=== PATIENT | female | born 1930 | race Caucasian/White ===

== ENCOUNTER 2018-02-05 12:57 | Observation (INO) | payer MEDICARE, OTHER ==
[2018-02-05] MEDS ORDERED: Nitroglycerin TAB 0.4 MG* 0.4 MG TAB SL ONE (13:26)
--- NOTE | 2018-02-05 13:52 | RAD ---
INDICATION: Chest pain. COMPARISON: Comparison is made with a prior chest x-ray study from May 08, 2017. TECHNIQUE: A portable view of the chest was obtained. FINDINGS: The heart is within normal limits in size. There is a round air soft tissue density which projects over the cardiac shadow present posterior to the heart on the prior study consistent with a moderate size hiatal hernia which appears unchanged. The lungs are hyperinflated and clear. No pleural effusion is seen. IMPRESSION: 1. NO EVIDENCE FOR ACUTE FINDING. 2. MODERATE SIZE HIATAL HERNIA, UNCHANGED.
[2018-02-05 13:58] LABS: ABS Basophils 0.1 10^3/ul (0-0.2); ABS Eosinophils 0.3 10^3/ul (0-0.6); ABS Lymphocytes 1.8 10^3/ul (1.0-4.8); ABS Monocytes 0.6 10^3/ul (0-0.8); ABS Neutrophils 4.5 10^3/ul (1.5-7.7); ABS Nucleated RBC 0 10^3/ul; Eosinophil % 4.4 % (0-6); Hematocrit 37 % (35-47); Lymphocyte % 24.4 % (25-47); Mean Corpuscular HGB Conc 33 g/dl (31-36); Mean Corpuscular Hemoglobin 27 pg (27-31); Mean Corpuscular Volume 82 fL (80-97); Mean Platelet Volume 7.9 um3 (7.4-10.4); Nucleated Red Blood Cells % 0; Platelet Count 220 10^3/ul (150-450); Red Blood Count 4.46 10^6/ul (4.00-5.40); Red Cell Distribution Width 14 % (10.5-15); White Blood Count 7.3 10^3/ul (3.5-10.8)
[2018-02-05 14:14] LABS: INR 0.88 (0.77-1.02)
[2018-02-05 14:18] LABS: EGFR Non-African American 42.8 (>60)
[2018-02-05] MEDS ORDERED: Iodixanol* (CONTRAST) 320 MG/ML 100 ML SDV IV ONE (14:39)
--- NOTE | 2018-02-05 15:31 | RAD ---
Indication: Multiple falls. Concern for potential TIA. Comparison: January 16, 2010 MRI and September 20, 2009 CT. Technique: Noncontrast CT vertex of skull through foramen magnum. Report: Old lacunar infarcts at the RIGHT caudate head and genu of the LEFT internal capsule. No lenz matter white matter obscuration seen in association with mass effect. Negative for intra or extra-axial hemorrhage. Moderate prominence of the cerebral sulci and proportional enlargement of the ventricles reflecting atrophy. Decreased density in the periventricular and subcortical white matter while non-specific is most likely due to chronic microangiopathy. Patent basal cisterns. Unremarkable orbital contents. Negative for scalp hematoma or fracture of the calvarium or skull base. IMPRESSION: 1. No CT evidence for traumatic brain injury or acute intracranial process evident. 2. Involutional change, stigmata of small vessel ischemic disease, and small chronic lacunar infarcts at the RIGHT caudate head and genu of the LEFT internal capsule.
--- NOTE | 2018-02-05 15:44 | RAD ---
INDICATION: Trauma. COMPARISON: Comparison is made with a prior x-ray study of the cervical spine from February 01, 2009. TECHNIQUE: Contiguous axial sections were obtained from the skull base through the T2 vertebra. Images were reconstructed in the sagittal and coronal planes. FINDINGS: There is mild anterolisthesis of C3 relative to C4 of approximately 2 mm which is unchanged. The vertebra are otherwise in normal alignment. No fracture is seen. At the C3-C4 level there is mild posterior uncinate process spurring and moderate hypertrophic changes within the facet joints. No significant spinal canal narrowing is present. There is moderate bilateral neural foraminal narrowing. At the C4-C5 level there is moderate posterior uncinate process spurring and mild hypertrophic changes within the facet joints. There is mild spinal canal narrowing. There is moderate neural foraminal narrowing on both sides. At the C5-C6 level there is moderate posterior uncinate process spurring causing mild spinal canal narrowing and moderate bilateral neuroforaminal narrowing. At the C6-C7 level there is mild posterior uncinate process spurring. No significant spinal canal narrowing is present. There is mild bilateral neural foraminal narrowing. IMPRESSION: 1. NO EVIDENCE FOR FRACTURE. 2. MODERATE CERVICAL SPONDYLOSIS.
--- NOTE | 2018-02-05 15:51 | RAD ---
INDICATION: Chest pain. Short of breath. Evaluate for pulmonary embolus. COMPARISON: Chest x-ray February 05, 2018; mammogram February 10, 2008 TECHNIQUE: Axial source images were obtained from the thoracic inlet to the hemidiaphragms following administration of [address] angiographic technique was utilized. Coronal and sagittal reconstructed images were acquired. CHEST FINDINGS: Neck/thyroid: The visualized neck to include the thyroid appear normal. Chest wall: There are no acute abnormalities of the bony thorax or chest wall. There are multiple right breast nodules. Nodules of similar size were evident on the 2007 mammogram. There is no supraclavicular, infraclavicular, or axillary lymphadenopathy. Lungs : There are no worrisome pulmonary parenchymal masses or infiltrates. There is mild parenchymal nodularity in the right upper lobe. Because there are no prior examinations for comparison, suggest noncontrast chest CT imaging follow-up in 6 months The pulmonary interstitium appears normal. There are no endobronchial lesions. Cardiomediastinal structures: There is no CT evidence of acute pulmonary embolic disease. The heart is normal in size. There is no pericardial effusion. There is no evidence of aortic aneurysm or dissection. There are underlying atherosclerotic changes. There is no mediastinal or hilar adenopathy. The esophagus appears normal. Pleura : There is mild pleural reactive change in right upper chest. There are no effusions. Other: There is a large hiatal hernia.. IMPRESSION: NO CT OF ACUTE PULMONARY EMBOLIC DISEASE. LOW INDEX OF SUSPICION RIGHT CHEST NODULARITY. STABLE RIGHT BREAST LESIONS. LARGE HILAR HERNIA
[2018-02-05] MEDS ORDERED: Al Hydrox/Mg Hydrox/Simet LIQ* 30 ML UDC PO ONE (16:27)
[2018-02-05] MEDS ORDERED: Acetaminophen TAB* 325 MG PO ONE (16:28)
[2018-02-05] MEDS: NS 0.9% 1000 ML* 1,000 ML IV SCH (16:59)
--- NOTE | 2018-02-05 17:33 | RAD ---
INDICATION: Right hip injury. COMPARISON: There are no prior studies available for comparison. TECHNIQUE: An AP view of the pelvis and frontal and lateral views of the right hip were obtained. FINDINGS: The bones are in normal alignment. No fracture is seen. There is mild bilateral osteoarthritic change in the hips. Contrast is seen within the urinary bladder from a prior CT study. IMPRESSION: NO EVIDENCE FOR FRACTURE, IF THE PATIENT'S SYMPTOMS PERSIST RECOMMEND FOLLOW-UP IMAGING.
[2018-02-05] MEDS ORDERED: Albuterol HFA INHALER* 8 gm MDI INH PRN (18:18)
[2018-02-05] MEDS ORDERED: hydrALAZINE IV* 20 MG/ML VIAL IV SLOW PU PRN (18:22)
--- NOTE | 2018-02-05 18:49 | ED ---
Cynthia Muniz Tenzin, scribed for Harshil Shepherd MD on 02/05/18 at 1323 . HPI Chest Pain - HPI Summary HPI Summary: Pt is an 87 years old female presenting to the ED complaining of chest pain since this morning at 9:00. Prior to onset pt reports that she was sitting and reading a book. Pt is with PMHx of asthma and COPD complaining of SOB. Pt denies pain in her calf, nausea, fever or chills. Pt rates her current chest pain at 5/10 in severity at the ED and describes it as pressured and tight feeling. She notes that the pain is aggravated by deep breaths and alleviated by walking around. Her daughter also reports that the pt fell yesterday and hit her face. Pt currently notes that her face is a little sore from that fall and notes swellings on her left upper lip. She reports that she doesn't remember how she fell. Her daughter reports that she also fell a week and half ago and hurt her hip. She took an 324 mg aspirin today. She is allergic to penicillin. She has a puffer at home for her asthma. She also had a TIA two and half years ago and notes that her left face has been little droopy since then. - History of Current Complaint Chief Complaint: EDChestPainROMI Time Seen by Provider: 02/05/18 13:11 Hx Obtained From: Patient Timing: Constant Current Severity: Mild Pain Intensity: 1 Pain Scale Used: 0-10 Numeric Chest Pain Location: Discrete at: - upper mid chest. Chest Pain Radiates: No Character: Pressure/Squeezing, Tightness Aggravating Factor(s): Deep Breaths Alleviating Factor(s): Other: - walking Associated Signs and Symptoms: Positive: Chest Pain, Shortness of Breath, Other : - swollen upper left lip from a fall yesterday.. Negative: Fever, Chills, Nausea - Allergy/Home Medications Allergies/Adverse Reactions: Allergies Allergy/AdvReac Type Severity Reaction Status Date / Time procaine [From Novocain] Allergy Hives Verified 02/05/18 13:39 Home Medications: Home Medications Albuterol inh POWDER (NF) [Proair Respiclick] 2 puff INH Q4HR PRN 02/05/18 [ History Confirmed 02/05/18] Aspirin EC TAB* [Ecotrin EC TAB*] 325 mg PO QAM 02/05/18 [History Confirmed ] Bimatoprost 0.01% OPHTH (NF) [Lumigan 0.01% OPHTH (NF)] 1 drop BOTH EYES QPM [History Confirmed 02/05/18] Cetirizine* [ZyrTEC 10 MG TAB*] 10 mg PO QPM 02/05/18 [History Confirmed ] Cholecalciferol (Vitamin D3) [Vitamin D3] 1,000 unit PO DAILY 02/05/18 [History Confirmed 02/05/18] Cyanocobalamin TAB* [Vitamin B12 TAB*] 100 mcg PO DAILY 02/05/18 [History Confirmed 02/05/18] Ferrous Gluconate TAB* [Fergon TAB*] 324 mg PO QAM 02/05/18 [History Confirmed 02/05/18] Loperamide CAP* [Imodium CAP*] 2 mg PO QAM 02/05/18 [History Confirmed 02/05/18] Metoprolol Tartrate TAB* [Lopressor TAB*] 12.5 mg PO QAM 02/05/18 [History Confirmed 02/05/18] Metoprolol Tartrate TAB* [Lopressor TAB*] 25 mg PO QPM 02/05/18 [History Confirmed 02/05/18] Mirtazapine TAB* [Remeron TAB*] 15 mg PO BEDTIME 02/05/18 [History Confirmed ] Naproxen Sodium [Naproxen 220 mg] 220 mg PO QPM 02/05/18 [History Confirmed ] Pantoprazole TAB (NF) [Protonix TAB (NF)] 20 mg PO QAM 02/05/18 [History Confirmed 02/05/18] Pravastatin (NF) [Pravachol (NF)] 20 mg PO BEDTIME 02/05/18 [History Confirmed 02/05/18] Sertraline* [Zoloft*] 50 mg PO QAM 02/05/18 [History Confirmed 02/05/18] Umeclidin/Vilant 62.5 MDI(NF) [ANORO 62.5/25 Ellipta DEVICE (NF)] 1 puff INH QAM 02/05/18 [History Confirmed 02/05/18] chlordiazePOXIDE CAP* [Librium CAP*] 5 mg PO BID 02/05/18 [History Confirmed ] PMH/Surg Hx/FS Hx/Imm Hx Cardiovascular History: Reports: Hx Hypertension Denies: Hx Pacemaker/ICD Respiratory History: Reports: Hx Asthma, Hx Chronic Obstructive Pulmonary Disease (COPD) GI History: Reports: Hx Gastroesophageal Reflux Disease Neurological History: Reports: Hx Transient Ischemic Attacks (TIA) Infectious Disease History: No Infectious Disease History: Denies: Traveled Outside the [place] in Last 30 Days - Family History Known Family History: Positive: Cardiac Disease Review of Systems Negative: Fever, Chills Positive: Chest Pain Positive: Shortness Of Breath Negative: Nausea Positive: Edema - left upper lip. All Other Systems Reviewed And Are Negative: Yes Physical Exam - Summary Physical Exam Summary: General: well-appearing, no pain distress Skin: warm, color reflects adequate perfusion, dry Head: normal Eyes: EOMI, ANTONIO ENT: normal Neck: supple, nontender Respiratory: CTA, breath sounds present Cardiovascular: RRR Abdomen: soft, nontender Bowel: present Musculoskeletal: normal, strength/ROM intact Neurological: sensory/motor intact, A&O x3. She is swollen in the left upper lip which makes her smile asymmetric, rest neuro exam is normal. GCS: 15 Psychological: affect/mood appropriate Triage Information Reviewed: Yes Vital Signs On Initial Exam: Initial Vitals Temp Pulse Resp BP Pulse Ox 98.0 F 76 14 208/98 98 02/05/18 13:02 02/05/18 13:02 02/05/18 13:02 02/05/18 13:02 02/05/18 13:02 Vital Signs Reviewed: Yes Diagnostics - Vital Signs Vital Signs Temp Pulse Resp BP Pulse Ox 02/05/18 13:02 98.0 F 76 14 208/98 98 - Laboratory Lab Results: Lab Results 02/05/18 02/05/18 02/05/18 Range/Units 13:50 13:50 13:50 WBC 7.3 (3.5-10.8) 10^3/ul RBC 4.46 (4.00-5.40) 10^6/ul Hgb 12.0 (12.0-16.0) g/dl Hct 37 (35-47) % MCV 82 (80-97) fL MCH 27 (27-31) pg MCHC 33 (31-36) g/dl RDW 14 (10.5-15) % Plt Count 220 (150-450) 10^3/ul MPV 7.9 (7.4-10.4) um3 Neut % (Auto) 62.0 (38-83) % Lymph % (Auto) 24.4 L (25-47) % Harper % (Auto) 8.4 H (0-7) % Eos % (Auto) 4.4 (0-6) % Baso % (Auto) 0.8 (0-2) % Absolute Neuts (auto) 4.5 (1.5-7.7) 10^3/ul Absolute Lymphs (auto) 1.8 (1.0-4.8) 10^3/ul Absolute Monos (auto) 0.6 (0-0.8) 10^3/ul Absolute Eos (auto) 0.3 (0-0.6) 10^3/ul Absolute Basos (auto) 0.1 (0-0.2) 10^3/ul Absolute Nucleated RBC 0 10^3/ul Nucleated RBC % 0 INR (Anticoag Therapy) 0.88 (0.77-1.02) APTT 30.9 (26.0-36.3) seconds D-Dimer, Quantitative 696 H (Less Than 230) ng/mL Sodium 138 L (139-145) mmol/L Potassium 4.5 (3.5-5.0) mmol/L Chloride 105 (101-111) mmol/L Carbon Dioxide 28 (22-32) mmol/L Anion Gap 5 (2-11) mmol/L BUN 24 (6-24) mg/dL Creatinine 1.19 H (0.51-0.95) mg/dL Est GFR ( Amer) 55.1 (>60) Est GFR (Non-Af Amer) 42.8 (>60) BUN/Creatinine Ratio 20.2 H (8-20) Glucose 91 (70-100) mg/dL Lactic Acid (0.5-2.0) mmol/L Calcium 9.2 (8.6-10.3) mg/dL Magnesium 2.1 (1.9-2.7) mg/dL Total Bilirubin 0.30 (0.2-1.0) mg/dL AST 14 (13-39) U/L ALT 7 (7-52) U/L Alkaline Phosphatase 87 (34-104) U/L Total Creatine Kinase 58 (10-223) U/L CK-MB (CK-2) 1.6 (0.6-6.3) ng/mL Troponin I 0.00 (<0.04) ng/mL C-Reactive Protein 2.13 (< 5.00) mg/L B-Natriuretic Peptide ( - 100) pg/mL Total Protein 6.4 (6.4-8.9) g/dL Albumin 3.6 (3.2-5.2) g/dL Globulin 2.8 (2-4) g/dL Albumin/Globulin Ratio 1.3 (1-3) Lipase 25 (11.0-82.0) U/L TSH 3.53 (0.34-5.60) mcIU/mL 02/05/18 02/05/18 02/05/18 Range/Units 13:50 13:50 16:12 WBC (3.5-10.8) 10^3/ul RBC (4.00-5.40) 10^6/ul Hgb (12.0-16.0) g/dl Hct (35-47) % MCV (80-97) fL MCH (27-31) pg MCHC (31-36) g/dl RDW (10.5-15) % Plt Count (150-450) 10^3/ul MPV (7.4-10.4) um3 Neut % (Auto) (38-83) % Lymph % (Auto) (25-47) % Harper % (Auto) (0-7) % Eos % (Auto) (0-6) % Baso % (Auto) (0-2) % Absolute Neuts (auto) (1.5-7.7) 10^3/ul Absolute Lymphs (auto) (1.0-4.8) 10^3/ul Absolute Monos (auto) (0-0.8) 10^3/ul Absolute Eos (auto) (0-0.6) 10^3/ul Absolute Basos (auto) (0-0.2) 10^3/ul Absolute Nucleated RBC 10^3/ul Nucleated RBC % INR (Anticoag Therapy) (0.77-1.02) APTT (26.0-36.3) seconds D-Dimer, Quantitative (Less Than 230) ng/mL Sodium (139-145) mmol/L Potassium (3.5-5.0) mmol/L Chloride (101-111) mmol/L Carbon Dioxide (22-32) mmol/L Anion Gap (2-11) mmol/L BUN (6-24) mg/dL Creatinine (0.51-0.95) mg/dL Est GFR ( Amer) (>60) Est GFR (Non-Af Amer) (>60) BUN/Creatinine Ratio (8-20) Glucose (70-100) mg/dL Lactic Acid 0.9 (0.5-2.0) mmol/L Calcium (8.6-10.3) mg/dL Magnesium (1.9-2.7) mg/dL Total Bilirubin (0.2-1.0) mg/dL AST (13-39) U/L ALT (7-52) U/L Alkaline Phosphatase (34-104) U/L Total Creatine Kinase (10-223) U/L CK-MB (CK-2) (0.6-6.3) ng/mL Troponin I 0.00 (<0.04) ng/mL C-Reactive Protein (< 5.00) mg/L B-Natriuretic Peptide 54 ( - 100) pg/mL Total Protein (6.4-8.9) g/dL Albumin (3.2-5.2) g/dL Globulin (2-4) g/dL Albumin/Globulin Ratio (1-3) Lipase (11.0-82.0) U/L TSH (0.34-5.60) mcIU/mL Result Diagrams: 02/05/18 13:50 02/05/18 13:50 Lab Statement: Any lab studies that have been ordered have been reviewed, and results considered in the medical decision making process. - Radiology CHEST X RAY Radiology Interpretation Completed By: Radiologist - IMPRESSION: 1. NO EVIDENCE FOR ACUTE FINDING. 2. MODERATE SIZE HIATAL HERNIA, UNCHANGED. reviewed the report. HIP/PELVIS X RAY Radiology Interpretation Completed By: Radiologist - IMPRESSION: NO EVIDENCE FOR FRACTURE, IF THE PATIENT'S SYMPTOMS PERSIST RECOMMEND FOLLOW-UP IMAGING. reviewed the report. - CT BRAIN CT CT Interpretation Completed By: Radiologist - IMPRESSION: 1. No CT evidence for traumatic brain injury or acute intracranial process evident. 2. Involutional change, stigmata of small vessel ischemic disease, and small chronic lacunar infarcts at the RIGHT caudate head and genu of the LEFT internal capsule. reviewed the report. CT CERVICAL SPINE CT Interpretation Completed By: Radiologist - IMPRESSION: 1. NO EVIDENCE FOR FRACTURE. 2. MODERATE CERVICAL SPONDYLOSIS. reviewed the report. CTA CHEST CT Interpretation Completed By: Radiologist - IMPRESSION: NO CT OF ACUTE PULMONARY EMBOLIC DISEASE. LOW INDEX OF SUSPICION RIGHT CHEST NODULARITY. STABLE RIGHT BREAST LESIONS. LARGE HILAR HERNIA. reviewed the report. - EKG 12:55 Cardiac Rate: NL - 73 BPM Ectopy: None EKG Interpretation: Q waves in anterior leads, ST elevation in anterior leads with concave up. Chest Pain Course/Dx - Course Course Of Treatment: ADMIT HOSPITALIST - Diagnoses Provider Diagnoses: Chest pain, Hypertension Discharge - Sign-Out/Discharge Documenting (check all that apply): Discharge/Admit/Transfer - admit - Discharge Plan Condition: Fair Disposition: ADMITTED TO [facility] Referrals: Geovanny Soto MD [Primary Care Provider] - - Billing Disposition and Condition Condition: FAIR Disposition: Admitted to [facility] The documentation as recorded by the Cynthia biswas Tenzin accurately reflects the service I personally performed and the decisions made by , Harshil Shepherd MD.
[2018-02-05] MEDS ORDERED: amLODIPine TAB* 5 MG PO SCH (19:00)
[2018-02-05] MEDS: Heparin VIAL(*) 5000 UNITS/ML VIAL (FIVE THOUSAND) SUBCUT SCH (20:17)
[2018-02-05] MEDS: chlordiazePOXIDE CAP* 5 MG PO SCH (20:35)
[2018-02-05 20:37] LABS: Urine Appearance Clear; Urine Blood Negative (Negative); Urine Color Straw; Urine Ketones Negative (Negative); Urine Protein Negative (Negative); Urine Specific Gravity 1.041 (1.010-1.030); Urine Urobilinogen Negative (Negative)
[2018-02-05] MEDS ORDERED: Mirtazapine TAB* 15 MG PO SCH (21:00)
[2018-02-05] MEDS ORDERED: Metoprolol Tartrate TAB* 25 MG PO SCH (22:00)
--- NOTE | 2018-02-05 23:41 | HP ---
CC: Dr. Soto.* HOSPITAL MEDICINE HISTORY AND PHYSICAL: DATE OF ADMISSION: 02/05/18 PRIMARY CARE PHYSICIAN: Dr. Soto. ATTENDING PHYSICIAN: Dr. Zaida Cornelius * (dictation provided by Lucero Sampson NP ). CHIEF COMPLAINT: Chest pain. HISTORY OF PRESENT ILLNESS: Ms. Sanchez is an 87-year-old female with a past medical history of hypertension, COPD/asthma and multiple TIAs with CVA who presented to the hospital today with concern for chest discomfort. Ms. Sanchez states that she has been in her normal state of health initially, however on further questioning she and her daughter note that there happened 2 recent falls. Per their report, the patient fell last week. She does not have a clear recollection of what happened, but she thinks maybe she tripped over something, although there was not anything there to trip over. She does not believe that she passed out, but she is not quite clear on that. Yesterday, she had another fall. For this fall, she has very limited memory. She thinks maybe she was reaching out to turn a light off, but she cannot be sure. When I asked her how she knew she fell, she has a difficult time answering the question, but states that her lip hurts and she thinks she bumped her lip during that fall. Today, she was seated at rest when she developed chest discomfort. She describes it as a chest heaviness that is worse with deep inspiration. She has reported that the discomfort actually got better when she got up and moved around as she was distracted by this. She also took her blood pressure at home and it was dramatically elevated over 200 systolically and therefore, she was counseled to come to the emergency room for evaluation In the emergency room, Ms. Sanchez states that her pain has been unremitting, but then when I asked her again later in the conversation, she states it is now resolved. She has labs, which are unremarkable. She has a chest x-ray, which was unremarkable. She went on for a brain CT, which shows just the stigmata of her previous TIA, CVAs. She has a chest thorax CTA, which was unremarkable and had pelvis x-ray, which is unremarkable and a cervical spine CT, which is unremarkable. Her vitals, however, show that she has a persistent significant hypertension with hypertensive urgency with systolic blood pressure running as high as 211, currently 189/92. PAST MEDICAL HISTORY: 1. Hyperlipidemia. 2. COPD/asthma. 3. Depression. 4. Hypertension. 5. GERD. 6. Irritable bowel syndrome. 7. Glaucoma. 8. Hiatal hernia. 9. History of TIA and CVAs. PAST SURGICAL HISTORY: 1. Cholecystectomy. 2. Appendectomy. 3. History of eye surgeries. MEDICATIONS: 1. Lumigan 0.01% 1 drop both eyes q.p.m. 2. Cetirizine 10 mg p.o. q.p.m. 3. Cholecalciferol 1000 units p.o. daily. 4. Naproxen 220 mg p.o. q.p.m. 5. Pravastatin 20 mg p.o. at bedtime. 6. Anoro Ellipta 62.5/25 one puff inhaled q.a.m. 7. Albuterol inhaler 2 puffs inhaled q.4 hours p.r.n. 8. Aspirin 325 mg p.o. q.a.m. 9. Chlordiazepoxide 5 mg p.o. b.i.d. 10. Cyanocobalamin 100 mcg p.o. daily. 11. Ferrous gluconate 324 mg p.o. q.a.m. 12. Loperamide 2 mg p.o. q.a.m. 13. Metoprolol tartrate 12.5 mg in the a.m. and 25 mg in the p.m. 14. Mirtazapine 15 mg p.o. at bedtime. 15. Pantoprazole 20 mg p.o. q.a.m. 16. Sertraline 50 mg p.o. q.a.m. ALLERGIES: PROGAINE. FAMILY HISTORY: The patient reports that her mother related to heart attack at age 55, but she does know what took her father's life. SOCIAL HISTORY: The patient is a former smoker. She quit 30 years ago. There is no reported drug use. She drinks alcohol very occasionally. She states that her oldest daughter, Kelli, will be the healthcare proxy. REVIEW OF SYSTEMS: A 14-point review of systems was completed with Ms. Sanchez , and all those not mentioned above were negative. PHYSICAL EXAMINATION GENERAL: Ms. Sanchez is sitting in the bed with her daughter at bedside. She is in no acute distress. VITAL SIGNS: Blood pressure on arrival was 208/98, now 189/92; heart rate 73; respiratory rate 17; O2 saturation 94% on room air. LUNGS: Clear to auscultation bilaterally. No accessory muscle use. Good aeration. HEART: S1, S2. No murmur, rub or gallop, and regular. ABDOMEN: Soft, nontender with bowel sounds positive x4. EXTREMITIES: No cyanosis. No edema. NEURO: She is alert. She is oriented x3. She moves all extremities equally. There is no facial asymmetry or focal weakness. Extraocular movements are intact. SKIN: Intact. DIAGNOSTIC STUDIES/LAB DATA: EKG shows sinus rhythm with no evidence of ischemia. Chest x-ray is read as follows: "No evidence for acute finding." Moderate- sized hiatal hernia unchanged. Brain CT is read as follows: No CT evidence for traumatic brain injury. Acute intracranial process evident, involutional changes, stigmata of small vessel ischemic disease and small chronic lacunar infarcts at the right caudate head and genu of the left internal capsule. Chest thorax CTA: "No CT evidence of acute pulmonary embolic disease." Low index of suspicion right chest nodularity, stable right breast lesions, large hiatal hernia. Hip pelvis x- ray: "No evidence for fracture." If the patient' s symptoms persist, recommend followup imaging. Cervical spine CT is read as follows: No evidence for fracture. Moderate cervical spondylosis. ASSESSMENT: Ms. Sanchez is an 87-year-old female with past medical history of hypertension, depression, chronic obstructive pulmonary disease, asthma and multiple transient ischemic attacks and cerebrovascular accidents in the past who presents to the hospital today with concern for 2 recent falls at home, which seem unusual for her and have unclear causation as well as now chest discomfort and hypertensive urgency. Our plans are for observation in hospital for the followin. Hypertensive urgency. The patient's blood pressure is now down to 189/92. She will have hydralazine available p.r.n. and I am starting amlodipine 5 mg p.o. daily now. 2. Chest discomfort. The patient's first 2 troponins are negative and her EKG shows no evidence of ischemia. We will replete troponin and go ahead and do a stress test while she is here as she is a high risk and has some unclear symptoms including chest discomfort and possible episodes of syncope. 3. Question syncope. The patient has great difficulty in explaining to me anything about these falls and is very likely that she could have been fainted. I would like to continue her on telemetry monitoring and obtain a transthoracic echocardiogram. 4. Chronic obstructive pulmonary disease/asthma. No evidence for acute exacerbation. Continue home medications. 5. Depression. Continue home medications. 6. Irritable bowel syndrome. Continue home medications. 7. DVT prophylaxis with heparin subcu. 8. Code status is DNR. TIME SPENT: Approximately 60 minutes was spent on the admission of this patient , more than half time spent with the patient at the bedside reviewing the events leading up to this hospitalization and during this hospitalization thus far, performing the physical examination and reviewing the plan of care. LUCERO SAMPSON NP [id number]/CPS #: [id number] JARROD
[2018-02-06] MEDS: NS 0.9% 1000 ML* 1,000 ML IV SCH (03:42)
[2018-02-06] MEDS: Heparin VIAL(*) 5000 UNITS/ML VIAL (FIVE THOUSAND) SUBCUT SCH ×2 (05:30→14:38)
[2018-02-06] MEDS ORDERED: amLODIPine TAB* 5 MG PO SCH (08:25)
[2018-02-06] MEDS ORDERED: Loperamide CAP* 2 MG PO SCH (09:00)
[2018-02-06] MEDS: chlordiazePOXIDE CAP* 5 MG PO SCH (09:00)
[2018-02-06] MEDS ORDERED: Metoprolol Tartrate TAB* 25 MG PO SCH (09:00)
[2018-02-06] MEDS ORDERED: Ferrous Gluconate TAB* 324 MG TAB PO SCH (09:00)
[2018-02-06] MEDS ORDERED: Aspirin EC TAB* 325 MG PO SCH (09:00)
[2018-02-06] MEDS ORDERED: CYANOCOBALAMIN 100 MCG PO SCH (09:00)
[2018-02-06] MEDS ORDERED: Pantoprazole TAB (NF) 20 MG TAB PO SCH (09:00)
[2018-02-06] MEDS ORDERED: Sertraline* 50 MG TAB PO SCH (09:00)
--- NOTE | 2018-02-06 09:00 | ECHO ---
Patient: [facility] Rec#: [id number] : 1930 Date: 02/06/2018 Age: 87y Height: 147.32 cm / 58.0 in Weight: 52.16 kg / 115.0 lbs Sex: F BSA: 1.44 Room#: [facility] Admit Date#: 02/05/2018 Type: Inpatient Referring: Lucero Sampson NP Reading: Dhiraj iMller MD Conveyor Monitor: Sunitha Mckeon,LISECS,RDMS CC: Geovanny Soto MD Transthoracic Echocardiogram Indication: CP, Syncope BP: 177/83 HR: 80 Rhythm: NSR Findings History: HTN, HLD, COPD, TIA, CVA Technical Comments: The study quality is fair. Left Ventricle: The left ventricular chamber size is decreased. Mild concentric left ventricular hypertrophy is observed. There is a prominent septal knuckle. The estimated ejection fraction is greater than 65%. There is an E to A reversal in the mitral valve flow pattern suggestive of diastolic dysfunction. Left Atrium: The left atrial chamber size is normal. Right Ventricle: The right ventricular chamber size and systolic function are within normal limits. The right ventricle wall thickness is mildly increased. Right Atrium: The right atrial cavity size is normal. Aortic Valve: The aortic valve is trileaflet. Systolic excursion of the aortic valve is normal. There is trace to mild aortic regurgitation. There is no evidence of aortic stenosis. Mitral Valve: Mild mitral annular calcification present. The mitral valve leaflets do not appear thickened. There is a trace of mitral regurgitation. There is no evidence of mitral stenosis. Tricuspid Valve: The tricuspid valve leaflets are normal. There is trace tricuspid regurgitation. No pulmonary hypertension is noted. Pulmonic Valve: There is no evidence of pulmonic valve thickening. There is a trace pulmonic regurgitation. Pericardium: There is no significant pericardial effusion. Aorta: The aortic root appears normal. The aortic arch is not well visualized. Pulmonary Artery: The main pulmonary artery is not well visualized. Venous: The inferior vena cava appears normal in size. There is a greater than 50% respiratory change in the inferior vena cava dimension. Conclusions Mild concentric left ventricular hypertrophy is observed. The estimated ejection fraction is Greater Than 65%. There is an E to A reversal in the mitral valve flow pattern suggestive of diastolic dysfunction. The right ventricle wall thickness is mildly increased. There is trace to mild aortic regurgitation. There is a trace of mitral regurgitation. There is trace tricuspid regurgitation. Similar to 10/2015. Measurements Name Value Normal Range RVIDd (AP) 2D 1.5 cm (0.9 - 2.6) RAd ISD 4CH 3.7 cm (3.4 - 4.9) RA (A4C)W 3.3 cm (2.9 - 4.6) IVSd (2D) 1.3 cm (0.6 - 1) LVPWd (2D) 1.1 cm (0.6 - 1) LVIDd (2D) 3.4 cm (3.6 - 5.4) LVIDs (2D) 2.6 cm - LV FS (2D) 22 % (25 - 45) Aortic Annulus 2 cm (1.4 - 2.6) Ao root diameter (2D) 2.8 cm (2.1 - 3.5) Ascending Ao 2.6 cm (2.1 - 3.4) LA dimension (AP) 2D 2.6 cm (2.3 - 3.8) LAd ISD 4CH 4.9 cm (2.9 - 5.3) LA ISD 4CH W 3.7 cm (2.5 - 4.5) Name Value Normal Range LA ESV SP 4CH (A/L) 42.37 ml - LA ESV SP 2CH (A/L) 33.26 ml - LA ESV BP (A/L) 38.01 ml - LA ESV BP (A/L) index 26 ml/m2 - LA ESV SP 4CH (MOD) 39.89 ml - LA ESV SP 2CH (MOD) 31.18 ml - Name Value Normal Range MV E-wave Vmax 0.8 m/sec - MV deceleration time 226 msec - MV A-wave Vmax 1.3 m/sec - MV E:A ratio 0.6 ratio - P. vein S-wave Vmax 0.6 m/sec - P. vein D-wave Vmax 0.4 m/sec - P. vein S:D Vmax ratio 1.5 ratio - P. vein A-wave duration 94 msec - LV septal e' Vmax 0.05 m/sec - LV lateral e' Vmax 0.05 m/sec - LV E:e' septal ratio 16 ratio - LV E:e' lateral ratio 16 ratio - Name Value Normal Range AV Vmax 1.7 m/sec - AV VTI 33.42 cm - AV peak gradient 11 mmHg - AV mean gradient 5.4 mmHg - LVOT Vmax 1.2 m/sec - LVOT VTI 27.9 cm - LVOT peak gradient 6 mmHg - LVOT mean gradient 3.5 mmHg - Name Value Normal Range MV Vmax 1.4 m/sec - MV VTI 26.5 cm - MV peak gradient 8 mmHg - MV mean gradient 2.2 mmHg - MV PHT 70 msec - MVA (PHT) 3.2 cm2 - Name Value Normal Range TR Vmax 2.7 m/sec - TR peak gradient 29 mmHg - RAP 3 mmHg - RVSP 32 mmHg - IVC diameter 1.4 cm - Name Value Normal Range PV Vmax 0.9 m/sec - PV peak gradient 3.2 mmHg -
[2018-02-06 14:10] VITALS: BP 135/77
--- NOTE | 2018-02-06 15:06 | PN ---
Subjective Date of Service: 02/06/18 Objective Active Medications: Albuterol (Ventolin Hfa Inhaler*) 2 puff INH Q4H PRN Amlodipine Besylate (Norvasc Tab*) 10 mg PO DAILY IVANIA Aspirin (Ecotrin Ec Tab*) 325 mg PO QAM [facility] Chlordiazepoxide (Librium Cap*) 5 mg PO BID IVANIA Ferrous Gluconate (Fergon Tab*) 324 mg PO QAM [facility] Heparin Sodium (Porcine) (Heparin Vial(*)) 5,000 units SUBCUT Q8HR IVANIA Hydralazine HCl (Apresoline Iv*) 5 mg IV SLOW PU Q6H PRN Loperamide HCl (Imodium Cap*) 2 mg PO QAM IVANIA Metoprolol Tartrate (Lopressor Tab*) 12.5 mg PO QAM IVANIA Metoprolol Tartrate (Lopressor Tab*) 25 mg PO QPM IVANIA Mirtazapine (Remeron Tab*) 15 mg PO BEDTIME IVANIA Non Formulary Med* Cyanocobalamin 100 Mcg Tab 1 admin PO DAILY IVANIA Pantoprazole Sodium (Protonix Tab (Nf)) 20 mg PO QAM IVANIA Sertraline HCl (Zoloft*) 50 mg PO QAM [facility] Vital Signs: Temp Pulse Resp BP Pulse Ox 98.2 F 94 16 135/77 98 02/06/18 11:33 02/06/18 14:09 02/06/18 11:46 02/06/18 14:09 02/06/18 14:09 Oxygen Devices in Use Now: None Appearance: Female lying in bed in NAD Eyes: No Scleral Icterus Ears/Nose/Mouth/Throat: Mucous Membranes Moist Neck: Trachea Midline Respiratory: Symmetrical Chest Expansion and Respiratory Effort, Clear to Auscultation Cardiovascular: NL Sounds; No Murmurs; No JVD, No Edema Abdominal: NL Sounds; No Tenderness; No Distention Lymphatic: No Cervical Adenopathy Extremities: No Edema Skin: No Rash or Ulcers Neurological: Alert and Oriented x 3, NL Muscle Strength and Tone Nutrition: Taking PO's Result Diagrams: 02/05/18 13:50 02/05/18 13:50 Additional Lab and Data: Lab Results 02/05/18 02/05/18 02/05/18 Range/Units 13:50 13:50 13:50 WBC 7.3 (3.5-10.8) 10^3/ul RBC 4.46 (4.00-5.40) 10^6/ul Hgb 12.0 (12.0-16.0) g/dl Hct 37 (35-47) % MCV 82 (80-97) fL MCH 27 (27-31) pg MCHC 33 (31-36) g/dl RDW 14 (10.5-15) % Plt Count 220 (150-450) 10^3/ul MPV 7.9 (7.4-10.4) um3 Neut % (Auto) 62.0 (38-83) % Lymph % (Auto) 24.4 L (25-47) % [place] % (Auto) 8.4 H (0-7) % Eos % (Auto) 4.4 (0-6) % Baso % (Auto) 0.8 (0-2) % Absolute Neuts (auto) 4.5 (1.5-7.7) 10^3/ul Absolute Lymphs (auto) 1.8 (1.0-4.8) 10^3/ul Absolute Monos (auto) 0.6 (0-0.8) 10^3/ul Absolute Eos (auto) 0.3 (0-0.6) 10^3/ul Absolute Basos (auto) 0.1 (0-0.2) 10^3/ul Absolute Nucleated RBC 0 10^3/ul Nucleated RBC % 0 INR (Anticoag Therapy) 0.88 (0.77-1.02) APTT 30.9 (26.0-36.3) seconds D-Dimer, Quantitative 696 H (Less Than 230) ng/mL Sodium 138 L (139-145) mmol/L Potassium 4.5 (3.5-5.0) mmol/L Chloride 105 (101-111) mmol/L Carbon Dioxide 28 (22-32) mmol/L Anion Gap 5 (2-11) mmol/L BUN 24 (6-24) mg/dL Creatinine 1.19 H (0.51-0.95) mg/dL Est GFR ( Amer) 55.1 (>60) Est GFR (Non-Af Amer) 42.8 (>60) BUN/Creatinine Ratio 20.2 H (8-20) Glucose 91 (70-100) mg/dL Lactic Acid (0.5-2.0) mmol/L Calcium 9.2 (8.6-10.3) mg/dL Magnesium 2.1 (1.9-2.7) mg/dL Total Bilirubin 0.30 (0.2-1.0) mg/dL AST 14 (13-39) U/L ALT 7 (7-52) U/L Alkaline Phosphatase 87 (34-104) U/L Total Creatine Kinase 58 (10-223) U/L CK-MB (CK-2) 1.6 (0.6-6.3) ng/mL Troponin I 0.00 (<0.04) ng/mL C-Reactive Protein 2.13 (< 5.00) mg/L B-Natriuretic Peptide ( - 100) pg/mL Total Protein 6.4 (6.4-8.9) g/dL Albumin 3.6 (3.2-5.2) g/dL Globulin 2.8 (2-4) g/dL Albumin/Globulin Ratio 1.3 (1-3) Lipase 25 (11.0-82.0) U/L TSH 3.53 (0.34-5.60) mcIU/mL 02/05/18 02/05/18 02/05/18 Range/Units 13:50 13:50 16:12 WBC (3.5-10.8) 10^3/ul RBC (4.00-5.40) 10^6/ul Hgb (12.0-16.0) g/dl Hct (35-47) % MCV (80-97) fL MCH (27-31) pg MCHC (31-36) g/dl RDW (10.5-15) % Plt Count (150-450) 10^3/ul MPV (7.4-10.4) um3 Neut % (Auto) (38-83) % Lymph % (Auto) (25-47) % Windham % (Auto) (0-7) % Eos % (Auto) (0-6) % Baso % (Auto) (0-2) % Absolute Neuts (auto) (1.5-7.7) 10^3/ul Absolute Lymphs (auto) (1.0-4.8) 10^3/ul Absolute Monos (auto) (0-0.8) 10^3/ul Absolute Eos (auto) (0-0.6) 10^3/ul Absolute Basos (auto) (0-0.2) 10^3/ul Absolute Nucleated RBC 10^3/ul Nucleated RBC % INR (Anticoag Therapy) (0.77-1.02) APTT (26.0-36.3) seconds D-Dimer, Quantitative (Less Than 230) ng/mL Sodium (139-145) mmol/L Potassium (3.5-5.0) mmol/L Chloride (101-111) mmol/L Carbon Dioxide (22-32) mmol/L Anion Gap (2-11) mmol/L BUN (6-24) mg/dL Creatinine (0.51-0.95) mg/dL Est GFR ( Amer) (>60) Est GFR (Non-Af Amer) (>60) BUN/Creatinine Ratio (8-20) Glucose (70-100) mg/dL Lactic Acid 0.9 (0.5-2.0) mmol/L Calcium (8.6-10.3) mg/dL Magnesium (1.9-2.7) mg/dL Total Bilirubin (0.2-1.0) mg/dL AST (13-39) U/L ALT (7-52) U/L Alkaline Phosphatase (34-104) U/L Total Creatine Kinase (10-223) U/L CK-MB (CK-2) (0.6-6.3) ng/mL Troponin I 0.00 (<0.04) ng/mL C-Reactive Protein (< 5.00) mg/L B-Natriuretic Peptide 54 ( - 100) pg/mL Total Protein (6.4-8.9) g/dL Albumin (3.2-5.2) g/dL Globulin (2-4) g/dL Albumin/Globulin Ratio (1-3) Lipase (11.0-82.0) U/L TSH (0.34-5.60) mcIU/mL Assess/Plan/Problems-Billing Assessment: Ms. Sanchez is an 87 yo female with a PMH of hypertension, multiple TIA/CVAs who was admitted on 02/05/18 with chest pain and hypertensive emergency. - Patient Problems (1) Hypertensive emergency Comment: - Resolved. - SBP 140s on metoprolol with addition of amlodipine. (2) Chest pain Comment: - Resolved, suspect secondary to hypertensive emergency. - Trops and EKG negative for evidence of ischemia. (3) Syncope Comment: - Patient reports 2 falls at home under unclear circumstances - No arrhythmmia, no significant abnormality on echo. - Ambulated with PT without difficulty. - Plan for VNS and PT at home. (4) DVT prophylaxis Comment: - Heparin SQ. (5) Full code status Comment: Status and Disposition: OBV. Discharge to home.
--- NOTE | 2018-02-06 21:34 | DS ---
CC: Dr. Soto * [facility] MEDICINE DISCHARGE SUMMARY: DATE OF ADMISSION: 02/05/18 DATE OF DISCHARGE: 02/06/18 ATTENDING PHYSICIAN: Dr. Tiff Leigh * (dictation provided by Denton Sampson NP ). PRIMARY DIAGNOSES: 1. Chest pain. 2. Hypertensive emergency. 3. Question falls at home. SECONDARY DIAGNOSES: 1. Hypertension. 2. Depression. 3. History of transient ischemic attack, cerebrovascular accidents. 4. Chronic obstructive pulmonary disease/asthma. 5. Hiatal hernia. 6. Glaucoma. 7. Irritable bowel syndrome. 8. Gastroesophageal reflux disease. PAST SURGICAL HISTORY: Cholecystectomy, appendectomy, history of eye surgeries. MEDICATIONS OUTPATIENT: 1. Amlodipine 10 mg p.o. daily (new medication). 2. Lumigan 0.01% one drop both eyes q.p.m. 3. Cetirizine 10 mg p.o. q.p.m. 4. Cholecalciferol 1000 units p.o. daily. 5. Naproxen 220 mg p.o. q.p.m. 6. Pravastatin 20 mg p.o. at bedtime. 7. Anoro Ellipta 62.5/25 one puff inhaled q.a.m. 8. Albuterol inhaler 2 puffs inhaled q.4 hours p.r.n. 9. Aspirin 325 mg p.o. q.a.m. 10. Chlordiazepoxide 5 mg p.o. b.i.d. 11. Cyanocobalamin 100 mcg p.o. daily. 12. Ferrous gluconate 324 mg p.o. q.a.m. 13. Loperamide 2 mg p.o. q.a.m. 14. Metoprolol tartrate 12.5 in the a.m. and 25 in the p.m. 15. Mirtazapine 15 at bedtime. 16. Pantoprazole 20 mg p.o. q.a.m. 17. Sertraline 50 mg p.o. q.a.m. HOSPITAL COURSE: Ms. Sanchez is an 87-year-old female with a past medical as outlined above, who presented to the emergency department on 02/05/18 with concern for chest discomfort. Please see the H and P from myself for complete details. In brief, the patient stated that she was sitting at home when she developed sudden onset of chest heaviness. At some point, her blood pressure was taken and it was noted to be elevated quite high and therefore she was brought to the emergency room for evaluation. In the emergency room, she was found to have a blood pressure running as high as 211 systolically. She continued to have chest discomfort. Her first troponin was negative and her EKG showed no evidence of ischemia. Ms. Sanchez was admitted to the hospital. She was treated with hydralazine IV and the addition of amlodipine. She is currently on amlodipine 10 mg and with this, her blood pressure is down to 140 systolically. She is asymptomatic and has no further chest pain. We did cycle 3 troponins, all of which were negative. She also had a transthoracic echo-cardiogram that showed no significant valvular or wall motion abnormalities, although she does have diastolic dysfunction consistent with her age. No evidence of arrhythmias was noted on telemetry. It is unclear what has driven Ms. Sanchez's uncontrolled blood pressure. The family states that she has had this in the past at the time of CVA, but she has no evidence of that today. I note from the record from Dr. Soto's office that her blood pressure has been well controlled on the past regimen. She denies any excessive salt intake, but I did speak with her about avoiding salt. In addition to the chest pain during my initial interview with her and the family, it was noted that the patient has had 2 recent falls at home. The patient has no clear memory of what happened in these falls and there was concern for possible syncopal episodes. I questioned whether or not this was all related to intermittently uncontrolled blood pressure with a systolic blood pressure as high as 220s as was noted here during this hospitalization. The remainder of the workup including the echo and the telemetry monitoring have been negative. She has been ambulated by Physical Therapy here in the hospital and deemed to be independent. Ms. Sanchez is medically stable for discharge to home to follow up with Dr. Soto regarding ongoing management and the need for further workup as needed for her elevated blood pressure. DISPOSITION: Home. DIET: Low-salt. ACTIVITY: As tolerated. FOLLOWUP PLANS: Please follow up with Dr. Soto in the next week regarding this acute hospitalization. TIME SPENT: Approximately 60 minutes were spent on the discharge of this patient, more than half the time was spent with the patient at the bedside reviewing the events leading up to this hospitalization and during this hospitalization, performing the physical examination, and reviewing my plan of care. DENTON SAMPSON NP [id number]/[facility] #: [id number] JARROD
== END 2018-02-06 16:01 | disposition home or self-care (01) ==
LOC: ED 12:57 → MEDTELE 18:17
PROVIDERS: ADMIT Hospitalist; ATTEND Internal Medicine
DX: R07.9 Chest pain, unspecified (principal); I16.1 Hypertensive emergency; I10 Essential (primary) hypertension; F32.9 Major depressive disorder, single episode, unspecified; Z86.73 Personal history of transient ischemic attack (TIA), and cerebral infarction without residual deficits; J44.9 Chronic obstructive pulmonary disease, unspecified; H40.9 Unspecified glaucoma; K21.9 Gastro-esophageal reflux disease without esophagitis; K44.9 Diaphragmatic hernia without obstruction or gangrene; K58.9 Irritable bowel syndrome, unspecified; Z79.899 Other long term (current) drug therapy; Z79.82 Long term (current) use of aspirin; Z82.49 Family history of ischemic heart disease and other diseases of the circulatory system; R06.02 Shortness of breath; Z88.8 Allergy status to other drugs, medicaments and biological substances; R94.31 Abnormal electrocardiogram [ECG] [EKG]; I51.9 Heart disease, unspecified
CPT/HCPCS: 36415; 70450; 71045; 71275; 72125; 80053; 81003; 82550; 82553; 83605; 83690; 83735; 83880; 84443; 84484; 85025; 85379; 85610; 85730; 86140; 93005; 93306; 96361; 96372; 96374; 99285; A9270-GY; G0378; G8978-GP-CH; G8979-GP-CH; G8980-GP-CH; J0360; J1644; Q9967

== ENCOUNTER 2018-03-31 08:06 | Day surgery (SDC) | payer MEDICARE, BC ==
[2018-03-31] MEDS ORDERED: Clindamycin 900 MG IVPREMIX(* 900 MG/50 ML SDV IV ONE (08:13)
[2018-03-31] MEDS ORDERED: Propofol* 10 MG/ML 20 ML BTL IV PUSH ONE (09:45)
[2018-03-31] MEDS ORDERED: Lidocaine 2% PF * 5 ML VIAL ONE (09:45)
[2018-03-31] MEDS ORDERED: Dexmedetomidine* 200 MCG/2 ML 2 ML VIAL ONE (09:46)
[2018-03-31] MEDS ORDERED: Chloroprocaine 2%* 20 ML VIAL ONE (11:05)
[2018-03-31] MEDS ORDERED: Naloxone* 0.4 MG/ML 1 ML VIAL IV PRN (12:22)
[2018-03-31] MEDS ORDERED: Ondansetron INJ* 2 MG/ML VIAL IV PRN (12:22)
[2018-03-31] MEDS ORDERED: Acetaminophen TAB* 325 MG PO PRN (12:22)
[2018-03-31] MEDS ORDERED: fentaNYL* 50 MCG/ML 2 ML VIAL (100 MCG VIAL) IV PRN (12:22)
[2018-03-31 14:57] VITALS: BP 127/81
--- NOTE | 2018-04-01 00:23 | OP ---
DATE OF OPERATION: 03/31/18 - [facility] DATE OF : [birth year] ATTENDING SURGEON: Jae Carreno MD YARN WINDER: KEY Jansen PRE-OP DIAGNOSIS: Retained foreign body, right forefoot. POST-OP DIAGNOSIS: Needle, right forefoot. OPERATIVE PROCEDURE: Removal of needle under mini C-arm. DESCRIPTION OF PROCEDURE: The patient was taken to the operating room where ankle Esmarch was applied. We instilled local anesthetic in the forefoot. Under C-arm control, we located the tip of the needle in the subcutaneous tissue just plantar to the fourth MTP joint. A 1 cm incision was made at this level and then we removed the needle with a needle driver trainee. We irrigated and then closed the wound with two small simple nylon sutures and compression dressing applied. [id number]/[facility] #: [id number] MTDD
--- NOTE | 2018-04-01 08:31 | RAD ---
INDICATION: Foreign body removal COMPARISON: March 27, 2018 FINDINGS: 24.2 seconds of fluoroscopy were provided for the orthopedics department. Fluoroscopic spot imaging of the right forefoot were obtained for operative control and show removal of the foreign body . CPT II Codes: G9500 (fluoro time doc)
== END 2018-03-31 15:39 | disposition home or self-care (01) ==
LOC: OR 08:06
PROVIDERS: ATTEND Orthopaedic Surgery
DX: S90.851A Superficial foreign body, right foot, initial encounter (principal); J44.9 Chronic obstructive pulmonary disease, unspecified; I10 Essential (primary) hypertension; Z87.891 Personal history of nicotine dependence; D51.0 Vitamin B12 deficiency anemia due to intrinsic factor deficiency; E03.9 Hypothyroidism, unspecified; F32.9 Major depressive disorder, single episode, unspecified; W45.8XXA Other foreign body or object entering through skin, initial encounter; Y92.003 Bedroom of unspecified non-institutional (private) residence as the place of occurrence of the external cause; J45.30 Mild persistent asthma, uncomplicated
CPT/HCPCS: 76000; 88300; J2400; J2704